=== PATIENT | female | born 1995 | race Caucasian/White ===

== ENCOUNTER 2018-12-15 10:56 | Outpatient (REF) | payer OTHER, SELFPAY ==
--- NOTE | 2018-12-15 10:00 | PAPFT_PTH ---
PATIENT: Christine Gr LOC: N U#:[id number] AGE/SX: 23/F ROOM: RE12/15/[address]: MIAN Perkins : 1995 BED: DIS: 12/15/2018 SPEC #: [id number] RECD: 12/15/18 13:03 STATUS: JAZMIN WINSLOW #: [id number] NICOLE: 12/15/18 10:[address]: Myra Doyle DEPT: [facility] Cytology RECD BY: Carmelo Zuñiga ENTERED: 12/15/18 13:04 SP TYPE: PAPFT OTHR DR: Eddie Phipps Tissues: 1 - CX/ENDOCX FOR PAP SMEARS Procedures: PAP THIN PREP/UVM Screening Comments: [id number]
== END 2018-12-15 11:16 ==
LOC: LBN 10:56
PROVIDERS: PCP Family Medicine; Visit Provider Nurse Practitioner Family
DX: Z12.4 Encounter for screening for malignant neoplasm of cervix (principal)
CPT/HCPCS: 88142

== ENCOUNTER 2020-07-29 15:25 | Outpatient (REF) | payer OTHER, SELFPAY ==
[2020-07-30 15:09] LABS: Chlamydia Result Negative (Negative); GC Result Negative (Negative)
== END 2020-07-29 15:45 ==
LOC: LBN 15:25
PROVIDERS: Visit Provider Nurse Practitioner Family
DX: Z11.3 Encounter for screening for infections with a predominantly sexual mode of transmission (principal)
CPT/HCPCS: 87491; 87591

== ENCOUNTER 2020-09-22 10:24 | Outpatient (REF) | payer OTHER, SELFPAY ==
--- NOTE | 2020-09-22 10:00 | PAPFT_PTH ---
PATIENT: Christine Gr LOC: OPAL U#:[id number] AGE/SX: 25/F ROOM: RE09/22/[address]: MIAN Perkins : 1995 BED: DIS: 09/22/2020 SPEC #: [id number] RECD: 09/22/20 13:15 STATUS: JAZMIN WINSLOW #: [id number] NICOLE: 09/22/20 10:[address]: Myra Doyle DEPT: [facility] Cytology RECD BY: Chelsie Fuller Tissues: 1 - CX/ENDOCX FOR PAP SMEARS Procedures: PAP THIN PREP/UVM Screening Comments: [id number]
[2020-09-23 15:01] LABS: Chlamydia Result Negative (Negative); GC Result Negative (Negative)
== END 2020-09-22 10:44 ==
LOC: LBN 10:24
PROVIDERS: Visit Provider Nurse Practitioner Family
DX: Z11.3 Encounter for screening for infections with a predominantly sexual mode of transmission (principal); Z12.4 Encounter for screening for malignant neoplasm of cervix
CPT/HCPCS: 87491; 87591; 88142

== ENCOUNTER 2021-03-09 17:56 | Outpatient (REF) | payer SELFPAY ==
[2021-03-03 10:34] LABS: HBs Antibody, Quant 121.7 mIU/mL (See Note); Hepatitis B Surface Ab Positive (See Note)
[2021-03-06 13:27] LABS: TB Interpretation Negative (Negative)
== END 2021-03-09 17:57 | disposition home or self-care (01) ==
LOC: LBO 17:56
PROVIDERS: Referring Provider Nurse Practitioner Family; Visit Provider Nurse Practitioner Family
DX: Z02.1 Encounter for pre-employment examination (principal); Z11.59 Encounter for screening for other viral diseases; Z11.1 Encounter for screening for respiratory tuberculosis
CPT/HCPCS: 36415; 86706; 86480

== ENCOUNTER 2021-06-26 15:30 | Outpatient (REF) | payer SELFPAY ==
[2021-06-27 03:53] LABS: COVID-19 RT-PCR UVMMC Result Negative (Negative)
== END 2021-06-26 15:31 | disposition home or self-care (01) ==
LOC: LBN 15:30
PROVIDERS: Visit Provider Nurse Practitioner Family
DX: Z20.822 Contact with and (suspected) exposure to COVID-19 (principal)
CPT/HCPCS: U0003

== ENCOUNTER 2021-07-23 17:45 | Outpatient (REF) | payer OTHER, SELFPAY ==
[2021-07-25 16:51] LABS: COVID-19 RT-PCR UVMMC Result Negative (Negative)
== END 2021-07-23 17:46 | disposition home or self-care (01) ==
LOC: LBN 17:45
PROVIDERS: Visit Provider Pediatrics
DX: Z20.822 Contact with and (suspected) exposure to COVID-19 (principal)
CPT/HCPCS: U0003

== ENCOUNTER 2023-05-12 12:00 | Day surgery (SDC) | payer MEDICAID, SELFPAY ==
[2023-05-12 12:04] VITALS: BP 134/106; PULSE 60; RESP 18; TEMP 36.8; O2SAT 99
--- NOTE | 2023-05-12 12:15 | DI.US_ITS ---
Exam(s) US PELVIS TRANSVAGINAL EXAM: US PELVIS TRANSVAGINAL CLINICAL HISTORY: heavy bleeding, 05/01. TECHNIQUE: Transabdominal and transvaginal pelvic ultrasound was performed using standard protocol. COMPARISON: No exams were available for comparison FINDINGS: UTERUS: Position: Anteverted. Size: 0.6 long by 9.4 AP by 9.6 transverse cm Endometrium: There is fluid and debris within the endometrial canal. There is no increased blood anusha w. Normal for patient's menstrual status. Myometrium: Unremarkable. Cervix: Unremarkable. OVARIES: The ovaries cannot be visualized on this examination. No suspicious adnexal masses are seen . CUL-DE-SAC: Free fluid: None. Other: None. IMPRESSION: 1. Enlarged uterus. 2. There is fluid and debris seen within the endometrial canal. No abnormal blood flow is seen. Dif ferential considerations include retained products of conception, hemorrhagic products/clot. Please correlate clinically. 3. Findings were discussed with Dr. Gibbons at 4:06 p.m. on 05/12/2023. DATA REPOSITORY:
--- NOTE | 2023-05-12 12:31 | ED.GENADUL_ITS ---
Discharge Plan Disposition Patient Disposition: Other Disposition Not Listed Other Facility: TO OR Discharge Details Chief Complaint: Abd Prob Clinical Impression: Retained products of conception, Primary Care Provider: Domenico Schneider ED Provider: Emerald Gibbons Home Meds and New Rx's Prescriptions: No Action valacyclovir [Valtrex] 500 mg tablet 500 mg PO DAILY Qty: 90 3RF amoxicillin-pot clavulanate 875-125 mg tablet 1 tab PO Q12H Qty: 14 0RF Medical Decision Making 27yo F s/p 05/02/23 presenting for vaginal bleeding; had stopped several days ago and then this morning recurred, bright red, saturated a pad in an hour. No lightheadedness. Vital signs reassuring on arrival, no abdominal tenderness, no blood or clots able to be expressed. Labs reviewed as below, CBC with anemia, CMP reassuring. UA without infection. Pelvic ultrasound discussed with reading radiologist; concern for possible retained products of conception. Reassessed; scant vaginal bleeding over the past 3 hours. Remains hemodynamically stable. manager community development consulted and evaluated patient (see their note for details); taken to OR for D&C. Imaging Data Radiologic Study: Imaging: Ultrasound Radiologist's impression: IMPRESSION: 1. Enlarged uterus. 2. There is fluid and debris seen within the endometrial canal.? No abnormal blood flow is seen.? Differential considerations include retained products of conception, hemorrhagic products/clot.? Please correlate clinically. Lab Data Lab results reviewed: Yes I reviewed the patient's lab results. Labs: 05/12/23 12:00 Urine - Reflex from Ua Urine Culture - Pending Laboratory Tests Range/Units 05/12/23 05/12/23 05/12/23 12:00 12:28 12:28 WBC (4.4-10.8) 10^3/uL 8.88 RBC (3.93-5.22) 10^6/uL 4.22 Hgb (11.2-15.7) g/dL 12.2 Hct (36.0-46.0) % 37.3 MCV (80-95) fL 88 MCH (27.0-33.0) pg 28.9 MCHC (32.0-36.0) % 32.7 RDW (11.7-14.6) % 13.6 Plt Count (130-400) 10^3/uL 393 MPV (8.0-11.0) fL 9.0 Immature Gran % 0.5 Neutrophils % 65.0 Lymphocytes % 26.9 Monocytes % 5.7 Eosinophils % 1.6 Basophils % 0.3 Nucleated RBC % (0.0-0.3) % 0.0 Absolute Neutrophils (1.2-6.7) 10^3/uL 5.77 Absolute Lymphocytes (1.2-3.4) 10^3/uL 2.39 Absolute Monocytes (0.1-0.8) 10^3/uL 0.51 Absolute Eosinophils (0.0-0.7) 10^3/uL 0.14 Absolute Basophils (0.0-0.2) 10^3/uL 0.03 Sodium (136-145) mmol/L 139 Potassium (3.5-5.1) mmol/L 4.2 Chloride (98-107) mmol/L 104 Carbon Dioxide (21.0-32.0) mmol/L 23.8 Anion Gap (3-11) mmol/L 11.2 H BUN (7-18) mg/dL 12 Creatinine (0.55-1.02) mg/dL 0.7 Est GFR (CKD-EPI 2020) (mL/min/1.73m2) 119.99 Glucose (74-106) mg/dL 93 Calcium (8.5-10.1) mg/dL 9.1 Total Bilirubin (0.2-1.0) mg/dL 0.2 AST (15-37) U/L 13 L ALT (14-59) U/L 28 Alkaline Phosphatase (46-116) U/L 85 Total Protein (6.4-8.2) g/dL 7.5 Albumin (3.4-5.0) g/dL 3.4 Urine Color (Yellow) Yellow Urine Clarity (Clear) Clear Urine pH (5-8) 6.0 Ur Specific [place] (1.005-1.025) 1.010 Urine Protein (Negative) mg/dL Negative Urine Ketones (Negative) mg/dL Negative Urine Blood (Negative) Moderate H Urine Nitrite (Negative) Negative Urine Bilirubin (Negative) Negative Urine Urobilinogen (Up to 0.2) mg/dL 0.2 Ur Leukocyte Esterase (Negative) Trace H Urine RBC (0-2) HPF 5-10 H Urine WBC (0-5) HPF 0-2 Ur Epithelial Cells (Negative) HPF Rare Urine Crystals (Negative) HPF Negative Urine Bacteria (Negative) HPF Negative Urine Casts (Negative) LPF Negative Urine Mucus (Negative) Negative Ur Culture Indicated? Yes Urine Glucose (Negative) mg/dL Negative HPI General Mode of arrival: ambulatory . Date/Time Provider Initiated Documentation: 05/12/23 12:06 . Limitations to Documentation: no limitations . Information obtained by: patient . HPI Narrative: 27yo F s/p 05/02/23 presenting for vaginal bleeding. Uncomplicated delivery per patient. Over the past two weeks lochia has decreased, initially red then brown then minimal. Last night began bleeding more heavily, bright red, passing multiple quarter sized clots. Filled one menstrual pad over the course of the past hour. At the onset of symptoms had lower abdominal cramping which has since resolved. Otherwise no abdominal pain. No dysuria, hematuria, lightheadedness, palpitations, fevers, or other concerns. Delivered in echo; attempted to contact her OB today without success. Related Data Home Medications Medication Instructions Recorded Confirmed valacyclovir 500 mg tablet 500 mg PO DAILY #90 tabs 09/22/20 02/01/23 (Valtrex) amoxicillin 875 mg-potassium 1 tab PO Q12H #14 tabs 01/24/23 01/24/23 clavulanate 125 mg tablet Previous Rx's Medication Instructions Recorded valacyclovir 500 mg tablet 500 mg PO DAILY #90 tabs 09/22/20 (Valtrex) amoxicillin 875 mg-potassium 1 tab PO Q12H #14 tabs 01/24/23 clavulanate 125 mg tablet Allergies Allergy/AdvReac Type Severity Reaction Status Date / Time benzoyl peroxide AdvReac Verified 05/12/23 12:08 General Stated Complaint: Abd Prob MARGOT: 3 Review of Systems Narrative: see HPI PFSH All Active Problems (Updated 05/12/23 @ 17:02 by Emerald Gibbons MD) Retained products of conception, (Acute) Positive test (Acute) Medical History Chlamydia infection Rx antibiotic 01/17/14, 03/25/14. SHANTEL neg 05/16/14 Contraception (01/30/16) Family History Son Asthma Social History Smoking/Tobacco Use Status: Never Smoking risk assessment performed?: Yes current occupation: [employer] Female Reproductive History Menstrual control method: copper IUCD (Paragaurd inserted by MIAN Norris. Lot # [id number] Exp Date 11/2024) Exam Narrative Exam Narrative: General: Alert, well appearing, well nourished, in no acute distress. Head: Normocephalic, atraumatic Neck: Trachea midline, Neck supple. ENT: MMM. No oropharygeal lesions or exudate. Cardiac: RRR, no murmurs appreciated Resp: No respiratory distress. CTAB. Abd: Soft, non-distended, nontender. : Low transverse incision healing well. No lower abdominal tenderness. Fundus not palpable. No blood or clots able to be expressed. Normal external genital exam, no active bleeding. Scant blood on pad (just changed per pt) Extremities: No deformities. No peripheral edema. Neurologic: GCS 15. Moves all extremities freely against gravity Course Vital Signs Vital signs: Vital Signs Temperature 36.8 C 05/12/23 12:04 Pulse 60 05/12/23 12:04 Respiratory Rate 18 05/12/23 12:04 Blood Pressure 134/106 H 05/12/23 12:04 Pulse Oximetry 99 05/12/23 12:04 Temperature 36.8 C 05/12/23 12:04 Temperature Source Oral 05/12/23 12:04 Pulse 60 05/12/23 12:04 Respiratory Rate 18 05/12/23 12:04 Respiratory Effort Normal 05/12/23 12:08 Blood Pressure 134/106 H 05/12/23 12:04 Blood Pressure Position Sitting 05/12/23 12:04 Pulse Oximetry 99 05/12/23 12:04 Oxygen Delivery Method Room Air 05/12/23 12:04 Oxygen Flow Rate 0 05/12/23 12:04 Pain Level 2 05/12/23 12:17
[2023-05-12 12:39] LABS: Abs Immature Grans 0.04 10^3/uL (0.0-0.06); Absolute Basophil Count 0.03 10^3/uL (0.0-0.2); Absolute Eosinophil Count 0.14 10^3/uL (0.0-0.7); Absolute Lymphocyte Count 2.39 10^3/uL (1.2-3.4); Absolute Monocyte Count 0.51 10^3/uL (0.1-0.8); Absolute Neutrophil Count 5.77 10^3/uL (1.2-6.7); Basophils % 0.3; Eosinophils % 1.6; HCT 37.3 % (36.0-46.0); HGB 12.2 g/dL (11.2-15.7); Immature Grans % 0.5; Lymphocytes % 26.9; MCH 28.9 pg (27.0-33.0); MCHC 32.7 % (32.0-36.0); MCV 88 fL (80-95); Monocytes % 5.7; Platelet Count 393 10^3/uL (130-400); RBC 4.22 10^6/uL (3.93-5.22); RDW 13.6 % (11.7-14.6); WBC 8.88 10^3/uL (4.4-10.8)
[2023-05-12 12:54] LABS: ALT 28 U/L (14-59); AST 13 U/L (15-37); Albumin 3.4 g/dL (3.4-5.0); Alkaline Phosphatase 85 U/L (46-116); Anion Gap 11.2 mmol/L (3-11); BUN 12 mg/dL (7-18); Bilirubin, Total 0.2 mg/dL (0.2-1.0); CO2 23.8 mmol/L (21.0-32.0); CREATININE 0.7 mg/dL (0.55-1.02); Calcium 9.1 mg/dL (8.5-10.1); Chloride 104 mmol/L (98-107); Estimated GFR 119.99 (mL/min/1.73m2); Glucose 93 mg/dL (74-106); Potassium 4.2 mmol/L (3.5-5.1); Sodium 139 mmol/L (136-145); Total Protein 7.5 g/dL (6.4-8.2)
[2023-05-12 14:01] LABS: Bilirubin Negative (Negative); Blood Moderate (Negative); Clarity Clear (Clear); Glucose Negative (Negative); Ketones Negative (Negative); Leukocyte Esterase Trace (Negative); Nitrite Negative (Negative); Urobilinogen 0.2 mg/dL (Up to 0.2)
[2023-05-12 14:09] LABS: Bacteria Negative HPF (Negative); C & S Indicated? Yes; Casts Negative LPF (Negative); Crystals Negative HPF (Negative); Epithelial Cells Rare HPF (Negative); Mucus Negative (Negative); WBC 0-2 HPF (0-5)
--- NOTE | 2023-05-12 17:07 | W.PM.HP.N ---
Date of service: 05/12/23 Time of Service: 17:08 Assessment and Plan Assessment and plan (1) Retained products of conception, : Status: Acute Assessment and plan: Discussed the situation with the patient and my recommendation for D&C for evacuation of uterine contents. She agrees to this procedure. We discussed that she should be able to continue to breast-feed if the case is uncomplicated. Risks were reviewed and discussed with pt and her [id number]. Risks include infection, bleeding, pain, injury to nearby organs such as the bowel and the bladder. All consents were signed and questions answered. The managing supervisor and the OR team were notified. Dr. Singer is available to run the ultrasound. Plans IUD for contraception. History of Present Illness Narrative: Pt is a P3 10 days s/p PCS at [facility] for distress/failed induction after PROM. She says her bleeding had decreased down to almost nothing until she woke up at 2am today and had a gush of blood. She continued to bleed pretty heavily after she woke this am and has been changing pads more than once/hr. She said she called her Ob office several times and did not receive a return call. She denies significant cramping or pain. She denies fever or chills. She exclusively breast feeding her daughter and that is going well. Review of Systems Constitutional Constitutional: Reports system reviewed and no additional complaints, except as documented Gastrointestinal Gastrointestinal: Denies nausea and Denies vomiting Genitourinary Genitourinary: Reports system reviewed and no additional complaints, except as documented PFSH All Active Problems (Updated 05/12/23 @ 20:42 by Joelle Gr MD) Retained products of conception, (Acute) Surgical History (Updated 05/12/23 @ 20:42 by Joelle Gr MD) History of 05/02/23: PCS for cat 2 FHT remote from delivery @ [facility] [place] teeth removed Family History Son Asthma Social History Smoking/Tobacco Use Status: Never Smoking risk assessment performed?: Yes current occupation: [employer] History History 4 Para 3 Hx # Term Pregnancies 3 Multiple births Hx # Pregnancies Ectopic pregnancies AB induced Hx Number of Living Children 3 AB spontaneous 1 Meds Allergies and Home Medications Allergies Allergy/AdvReac Type Severity Reaction Status Date / Time benzoyl peroxide AdvReac Swelling/Ed Verified 05/12/23 17:09 kierra Home Medications Medication Instructions Recorded Confirmed Type docusate sodium 100 mg capsule 100 mg PO DAILY 05/12/23 05/12/23 History (Colace) methylergonovine 0.2 mg tablet 0.2 mg PO QID 1 day #4 tabs 05/12/23 Rx (Methergine) vit no.133-ferrous See Rx Instructions .Route .COMPLEX 05/12/23 05/12/23 History fumarate 28 mg-folic acid 800 mcg tablet () Exam Const General: cooperative, healthy appearing, no acute distress, well developed and well groomed HENMT Head: normocephalic and atraumatic GI Other: No tenderness to palpation or uterine tenderness. Difficult to palpate fundus clearly Results Imaging US - pelvic: report reviewed and image reviewed Imaging Studies: Ultrasound concerning for retained POC Labs 05/12/23 12:28 05/12/23 12:28 Labs: Laboratory Results - last 24 hr 05/12/23 05/12/23 05/12/23 12:00 12:28 12:28 WBC 8.88 RBC 4.22 Hgb 12.2 Hct 37.3 MCV 88 MCH 28.9 MCHC 32.7 RDW 13.6 Plt Count 393 MPV 9.0 Immature Gran % 0.5 Neutrophils % 65.0 Lymphocytes % 26.9 Monocytes % 5.7 Eosinophils % 1.6 Basophils % 0.3 Nucleated RBC % 0.0 Absolute Neutrophils 5.77 Absolute Lymphocytes 2.39 Absolute Monocytes 0.51 Absolute Eosinophils 0.14 Absolute Basophils 0.03 Sodium 139 Potassium 4.2 Chloride 104 Carbon Dioxide 23.8 Anion Gap 11.2 H BUN 12 Creatinine 0.7 Est GFR (CKD-EPI 2020) 119.99 Glucose 93 Calcium 9.1 Total Bilirubin 0.2 AST 13 L ALT 28 Alkaline Phosphatase 85 Total Protein 7.5 Albumin 3.4 Urine Color Yellow Urine Clarity Clear Urine pH 6.0 Ur Specific [place] 1.010 Urine Protein Negative Urine Ketones Negative Urine Blood Moderate H Urine Nitrite Negative Urine Bilirubin Negative Urine Urobilinogen 0.2 Ur Leukocyte Esterase Trace H Urine RBC 5-10 H Urine WBC 0-2 Ur Epithelial Cells Rare Urine Crystals Negative Urine Bacteria Negative Urine Casts Negative Urine Mucus Negative Ur Culture Indicated? Yes Urine Glucose Negative Last Vital Signs Temp 98.2 F 05/12/23 12:04 Pulse 60 05/12/23 12:04 Resp 18 05/12/23 12:04 BP 134/106 H 05/12/23 12:04 Pulse Ox 99 05/12/23 12:04 Time Spent Time spent with Patient: 40-54 minutes Time was spent: preparing to see the patient(eg.review tests), obtaining and/or reviewing separately otained hiistory, ordering medications,tests, procedures, referring, communicating with other health intensive care nurse, indepentently interpreting results and counseling the patient
--- NOTE | 2023-05-12 17:21 | ANES.PREOP_ITS ---
General Info Date of Service Date Performed: 05/12/23 Height: 5 ft 6 in Weight: 87.543 kg Body Mass Index (BMI): 31.1 Meds Allergies and Home Medications Allergies Allergy/AdvReac Type Severity Reaction Status Date / Time benzoyl peroxide AdvReac Swelling/Ed Verified 05/12/23 17:09 kierra Home Medication Medication Instructions Recorded amoxicillin 875 mg-potassium 1 tab PO Q12H #14 tabs 01/24/23 clavulanate 125 mg tablet docusate sodium 100 mg capsule 100 mg PO DAILY 05/12/23 (Colace) vit no.133-ferrous See Rx Instructions .Route .COMPLEX 05/12/23 fumarate 28 mg-folic acid 800 mcg tablet () valacyclovir 500 mg tablet 500 mg PO PRN PRN 05/12/23 (Valtrex) PFSH Active Problems Active Problems: Problem Status Onset Code Positive test Z32.01 Medical History Medical History (Updated 05/12/23 @ 17:12 by Joelle Gr MD) Chlamydia infection Rx antibiotic 01/17/14, 03/25/14. SHANTEL neg 05/16/14 Tobacco Smoking/Tobacco Use Status: Never Prental History History 4 Para 3 Hx # Term Pregnancies 3 Multiple births Hx # Pregnancies Ectopic pregnancies AB induced Hx Number of Living Children 3 AB spontaneous 1 Vital Signs and Lab Results Vital Signs Most Recent Vital Signs in EMR: Most Recent Vital Signs Temp Pulse Resp BP Pulse Ox 36.8 C 60 18 134/106 H 99 05/12/23 12:04 05/12/23 12:04 05/12/23 12:04 05/12/23 12:04 05/12/23 12:04 Lab Results 05/12/23 12:28 05/12/23 12:28 Blood Type / Crossmatch: No Data to Display Complete Blood Count: White Blood Count 8.88 10^3/uL (4.4-10.8) 05/12/23 12:28 Red Blood Count 4.22 10^6/uL (3.93-5.22) 05/12/23 12:28 Hemoglobin 12.2 g/dL (11.2-15.7) 05/12/23 12:28 Hematocrit 37.3 % (36.0-46.0) 05/12/23 12:28 Platelet Count 393 10^3/uL (130-400) 05/12/23 12:28 Complete Metabolic Panel: Sodium 139 mmol/L (136-145) 05/12/23 12:28 Potassium 4.2 mmol/L (3.5-5.1) 05/12/23 12:28 Chloride 104 mmol/L (98-107) 05/12/23 12:28 Carbon Dioxide 23.8 mmol/L (21.0-32.0) 05/12/23 12:28 BUN 12 mg/dL (7-18) 05/12/23 12:28 Creatinine 0.7 mg/dL (0.55-1.02) 05/12/23 12:28 Est GFR (CKD-EPI 2020) 119.99 (mL/min/1.73m2) 05/12/23 12:28 Calcium 9.1 mg/dL (8.5-10.1) 05/12/23 12:28 Albumin 3.4 g/dL (3.4-5.0) 05/12/23 12:28 Glucose 93 mg/dL (74-106) 05/12/23 12:28 Liver Function Panel: Alanine Aminotransferase (ALT/SGPT) 28 U/L (14-59) 05/12/23 12: 28 Aspartate Amino Transf (AST/SGOT) 13 U/L (15-37) L 05/12/23 12: 28 Coagulation Panel: No Data to Display Cardiac Panel: No Data to Display Arterial Blood Gas: No Data to Display Venous Blood Gas: No Data to Display Pancreas Panel: No Data to Display Thyroid Panel: No Data to Display Infectious Disease: No Data to Display Blood Cultures: No Data to Display Toxicology Panel: No Data to Display Panel: No Data to Display Anesthesia Assessment and Plan Anesthesia History Personal History: No History of Anesthesia Complications Family History: No Family History of Anesthesia Complications Exercise Tolerance Exercise Tolerance: Metabolic Equivalents>4 Pertinent Negatives Pertinent Negatives: No Symptoms of GERD, No Major Cardiovascular Symptoms or Complaints, No Major Pulmonary Symptoms or Complaints and No History of CVA/TIA Cardiac & Pulmonary Exam Cardiac Exam: Normal S1/S2 Heart Sounds Pulmonary Exam: Clear Bilateral Breath Sounds Implantable Cardiac Device Does patient have a Pacemaker or an ICD?: No Airway Exam Known Difficult Airway: No Mallampati Class: 2 Mouth Opening: Normal (> 3cm) Thyromental Distance: Greater than 3 cm Neck Range of Motion: Full ROM Neck Circumference: Normal Teeth Condition: Normal Dentition ASA Classification ASA Score: ASA 2 Emergency Case?: No NPO Status NPO Status: NPO Clears >2 hours, Solids >8 hours Status Status: Not Relevant due to Medical History (c section 10 days ago) Anesthesia Plan Resuscitation Status: Full Code Anesthesia Technique: General Anesthesia Airway Planned: Natural Airway Monitors Used: Standard Monitors
[2023-05-12 17:36] VITALS: BMI 31.1
[2023-05-12] MEDS: Lactated Ringers 1,000 ML 30 ML IV (17:39)
--- NOTE | 2023-05-12 17:56 | POCSPONT_PTH ---
PATIENT: Christine Gr LOC: FRAN U#:[id number] AGE/SX: 27/F ROOM: RE05/12/[address]: Joelle Gr MD : 1995 BED: DIS: 05/12/2023 SPEC #: [id number] RECD: 05/13/23 12:35 STATUS: JAZMIN REQ #: [id number] NICOLE: 05/12/23 17:[address]: Joelle Gr DEPT: Surgical Specimen RECD BY: Chelsie Fuller ENTERED: 05/13/23 12:35 SP TYPE: POCROQUE CHAVEZ DR: Domenico Schneider Tissues: 1 - ,SPONTANEOUS Procedures: GROSS AND MICRO LEVEL 4 Comments: [id number]
[2023-05-12] MEDS: Bupivacaine 0.25% Pres-Free 30 ML VIAL (17:58)
[2023-05-12] MEDS: Methylergonovine 0.2 MG/ML VIAL (18:11)
--- NOTE | 2023-05-12 18:24 | ROE_ITS ---
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 Procedure Description: After informed consent was signed the patient was taken to the operating room and given General room air anesthesia. SCDs were placed on her legs. She was prepped and draped in the dorsal lithotomy position in the [facility]. A time out was performed. Her bladder was drained of urine if not done immediately prior to entrance to the OR. Exam under anesthesia revealed normal external genitalia, vagina normal for age and a normal sized uterus. Ultrasound revealed a fluid filled uterus with arcuate appearance. A speculum was placed into the vagina to reveal the cervix. The anterior lip of the cervix was grasped with a single tooth tenaculum. A paracervical block was given with 7ml of 0.25% marcaine. The cervix was already dilated. The suction device was assembled and turned on. The uterine cavity was gently suctioned to remove the products of conception under ultrasound guidance. There was minimal bleeding initially and a bimanual massage resulted in very little bleeding with a firm uterus. The patient was given 1 dose of methergine 0.2mg IM. The tenaculum was removed from the cervix with good hemostasis. The speculum was removed from the vagina. The patient was placed back into the supine position. She was moved to the stretcher and taken to the recovery room in stable condition.
[2023-05-12 18:29] VITALS: BP 138/88; PULSE 47; RESP 18; TEMP 36.4; O2SAT 98
--- NOTE | 2023-05-12 18:43 | W.ANESPOSTOP ---
Postoperative Evaluation Date, Time and Location Date Performed: 05/12/23 Time Performed: 18:30 Patient Location: Med/Surg Vital Signs Most Recent Imported Vital Signs: Most Recent Vital Signs Temp Pulse Resp BP Pulse Ox 36.4 C L 47 L 18 138/88 98 05/12/23 18:29 05/12/23 18:29 05/12/23 18:29 05/12/23 18:29 05/12/23 18:29 Pain Score Most Recent Pain Score: Most Recent Pain Score Pain Level 2 05/12/23 12:30 Assessment Mental Status: Awake (Alert & Oriented to Patient Baseline) Airway and Respiratory Function: Patent airway with normal (patient baseline) respiratory exam Cardiovascular Function: Hemodynamically Stable Hydration Status: Adequately Hydrated Nausea & Vomiting: No Nausea or Vomiting Pain: Pain is tolerable per patient Peripheral Nerve Block: Patient did not receive a nerve block
[2023-05-12 18:50] VITALS: BP 136/92; PULSE 61; RESP 18; TEMP 36.2; O2SAT 98
[2023-05-12] MEDS: Methylergonovine 0.2 MG TAB PO (19:08)
== END 2023-05-12 19:18 | disposition home or self-care (01) ==
LOC: ER 17:02 → SUR 17:32 → MS 18:45
PROVIDERS: Emergency Provider Student in an Organized Health Care Education/Training Program; PCP Physician Assistant Medical; Visit Provider Obstetrics & Gynecology
PROC: (CPT 59160; principal; 2023-05-12 17:20)
DX: O72.2 Delayed and secondary postpartum hemorrhage (principal); Q51.810 Arcuate uterus
CPT/HCPCS: 59160; 80053; 88305; 76830; 76856; 81003; 81015; 85025; 87086; J1100; J1885; J2001; J2210; J2405; J2704

== ENCOUNTER 2023-11-02 18:31 | Outpatient (REF) | payer MEDICAID, SELFPAY ==
[2023-11-02 20:42] LABS: Magnesium 1.7 mg/dL (1.8-2.4); Vitamin B12 300 pg/mL (193-986)
[2023-11-02 20:47] LABS: Folate > 20.0 ng/mL (8.6-20.0)
[2023-11-02 21:03] LABS: FREE T4 0.98 ng/dL (0.76-1.46)
== END 2023-11-02 18:32 | disposition home or self-care (01) ==
LOC: NCHCN 18:31
PROVIDERS: PCP Physician Assistant Medical; Visit Provider Physician Assistant Medical
DX: G43.909 Migraine, unspecified, not intractable, without status migrainosus (principal)
CPT/HCPCS: 82607; 82746; 83735; 84439; 84443

== ENCOUNTER 2023-12-07 18:00 | Outpatient (REF) | payer MEDICAID, SELFPAY ==
[2023-12-07 20:10] LABS: Magnesium 2.1 mg/dL (1.8-2.4)
[2023-12-07 21:08] LABS: Vitamin D 25 Total 25.6 ng/mL (30-100)
== END 2023-12-07 18:01 | disposition home or self-care (01) ==
LOC: NCHCN 18:00
PROVIDERS: PCP Physician Assistant Medical; Visit Provider Physician Assistant Medical
DX: G43.909 Migraine, unspecified, not intractable, without status migrainosus (principal); E83.42 Hypomagnesemia
CPT/HCPCS: 82306; 83735

== ENCOUNTER 2024-10-30 11:03 | Outpatient (REF) | payer OTHER, MEDICAID, SELFPAY ==
--- NOTE | 2024-10-30 10:50 | PAPFT_PTH ---
PATIENT: Christine Gr LOC: OPAL U#:[id number] AGE/SX: 29/F ROOM: RE10/30/[address]: Sara Mitchell NP : 1995 BED: DIS: 10/30/2024 SPEC #: [id number] RECD: 10/30/24 13:13 STATUS: JAZMIN REQ #: [id number] NICOLE: 10/30/24 10:[address]: Sara Mitchell NP DEPT: [facility] Cytology RECD BY: Chelsie Fuller ENTERED: 10/30/24 13:13 SP TYPE: PAPFT OTHR DR: Domenico Schneider Tissues: 1 - CX/ENDOCX FOR PAP SMEARS Procedures: PAP THIN PREP/UVM Screening HPV DNA PROBE Comments: [id number] (HPV 16 & 18/45)
== END 2024-10-30 11:04 | disposition home or self-care (01) ==
LOC: LBN 11:03
PROVIDERS: PCP Physician Assistant Medical; Visit Provider Nurse Practitioner Women's Health
DX: Z11.51 Encounter for screening for human papillomavirus (HPV) (principal); Z01.419 Encounter for gynecological examination (general) (routine) without abnormal findings
CPT/HCPCS: 88142; 87624